=== PATIENT | female | born 1995 ===

== ENCOUNTER → 2018-09-23 | Outpatient (REF) | payer OTHER | LOC: M LAB LCGH 12:47 | PROVIDERS: ATTEND Nurse Practitioner Adult Health | DX: Z12.4 Encounter for screening for malignant neoplasm of cervix (principal) ==

== ENCOUNTER → 2022-03-27 | Outpatient (REF) | payer OTHER | LOC: M WUC 16:29 | PROVIDERS: ATTEND Physician Assistant | DX: R30.0 Dysuria (principal) ==